=== PATIENT | male | born 1980 | race Caucasian/White ===

== ENCOUNTER 2020-12-16 21:57 | Emergency (ER) | payer OTHER, SELFPAY ==
[2020-12-16 22:27] VITALS: BP 140/83; PULSE 88; RESP 18; TEMP 37.3; O2SAT 99; BMI 23.8
[2020-12-16 23:05] LABS: COVID-19 Test Negative (Negative)
[2020-12-16 23:50] LABS: IDNOW Serial# 9DD0AD1C; Strep A Nucleic Acid Positive (Negative)
--- NOTE | 2020-12-17 00:09 | ED.URI ---
HPI - URI/Sore Throat General Chief Complaint: Upper Respiratory Symptoms Stated Complaint: covid symptoms Time Seen by Provider: 12/16/20 23:06 Source: patient Mode of arrival: ambulatory Limitations: no limitations History of Present Illness HPI Narrative: Patient presents to the ED for sore throat, fever, and body aches for 1 week. Patient denies any coughing, chest pain, shortness of breath. Patient denies inability to tolerate solid food or liquid. Patient denies any drooling or change in voice. MD elicited complaint: fever and sore throat Related Data Previous Rx's Medication Instructions Recorded amoxicillin 875 mg-potassium 1 tab PO Q12H #20 tab 12/17/20 clavulanate 125 mg tablet (Augmentin) naproxen 500 mg tablet 500 mg PO BID PRN #20 tab 12/17/20 Allergies Allergy/AdvReac Type Severity Reaction Status Date / Time No Known Allergies Allergy Unverified 11/21/19 19:29 [No Known Allergies*] Review of Systems Review of Systems: Yes all other systems are reviewed and are negative Constitutional: Constitutional: Reports as per HPI, Reports no additional constitutional complaints, Reports body ache(s) and Reports chills Eyes: Eyes: Reports as per HPI and Reports no additional eye complaints ENT: Reports system reviewed and no additional complaints, except as documented, Reports as per HPI and Reports sore throat Cardiovascular: Cardiovascular: Reports as per HPI and Reports no additional cardiovascular complaints Respiratory: Respiratory: Reports as per HPI and Reports no additional respiratory complaints Gastrointestinal: Gastrointestinal: Reports as per HPI and Reports no additional gastrointestinal complaints Genitourinary: Genitourinary: Reports no additional male genitourinary complaints and Reports as per HPI Musculoskeletal: Musculoskeletal: Reports no additional musculoskeletal complaints and Reports as per HPI Neurologic: Reports system reviewed and no additional complaints, except as documented and Reports as per HPI Psychiatric: Psychiatric: Reports no additional psychiatric complaints [facility] Past Medical History Medical History (Updated 12/17/20 @ 00:17 by LARRY Gonzales) Diabetes mellitus, type 2 Social History Social History Advance Directives: No Physical Exam Vital Signs: Vital Signs: Last Vital Signs Temp 99.1 F 12/16/20 22:27 Pulse 88 12/16/20 22:27 Resp 18 12/16/20 22:27 BP 140/83 H 12/16/20 22:27 Pulse Ox 99 12/16/20 22:27 Body Mass Index 23.8 Const: General: cooperative, healthy appearing, comfortable, no acute distress, well developed, alert, awake and Physically active Orientation/consciousness: patient oriented x3 HENMT: Head: Yes normal to inspection, Yes No palpable skull fracture present, Yes normocephalic, Yes atraumatic and No abrasion Throat: Yes posterior oropharynx normal, Yes tonsils normal and Yes uvula midline Neck: Neck: Yes normal visual inspection, Yes full ROM, Yes no lymphadenopathy, Yes no meningeal signs, Yes trachea midline, Yes supple and No tender Chest: Chest palpation & inspection: normal inspection of the chest and normal palpation of entire chest wall Resp: Effort & Inspection: normal respiratory effort and able to speak in complete sentences Auscultation: clear to auscultation bilaterally Cardio: Jugular venous distension: no JVD Heart sounds: S1 normal heart sound present and S2 normal heart sound present GI: Inspection: Yes normal to inspection and No abdominal wall ecchymosis Palpation (GI): Soft to palpation, not firm, nontender, no guarding and not rigid : General: No CVA tenderness and Yes no CVA tenderness Back/Spine/Pelvis: Back: no CVA tenderness, No CVA tenderness and No back tenderness Skin: General skin exam: no rashes or lesions noted and elasticity normal Neuro: General: patient oriented x3, gait normal, no meningeal signs and CN's II-XI intact bilaterally Cranial nerves: Yes CN's II-XII intact bilaterally Extrem: General: Yes normal to inspection and Yes full ROM Psych: Appearance: grossly normal, well kempt and not disheveled Course Course Course Narrative: COVID swab and strep throat ordered Reevaluation(s) Reevaluation #1: COVID swab negative. Patient came back positive for strep throat Time: 00:15 MDM - URI/Sore Throat MDM Narrative Medical decision making narrative: Pharyngitis Lab Data Labs: Lab Results 12/16/20 12/16/20 Range/Units 22:32 23:26 COVID-19 (JAKE) Negative (Negative) COVID-19 Clin Com See Note S. pyogenes GrpA CARMEN Positive A (Negative) Discharge Plan Discharge Clinical Impression: Acute streptococcal pharyngitis Patient Disposition: Home, Self-Care Instructions: Strep Throat (ED) Additional Instructions: He came back positive for strep throat. COVID swab came back negative. He will be discharged with antibiotics. Return to the ED immediately for inability tolerate solid food/liquid, neck swelling, drooling, change in voice, trach tubal fever, chills, chest pain, shortness of breath, or any other concerning symptoms. Prescriptions: New amoxicillin-pot clavulanate [Augmentin] 875-125 mg tablet 1 tab PO Q12H Qty: 20 RF: 0 naproxen 500 mg tablet 500 mg PO BID PRN (Reason: pain) Qty: 20 RF: 0 Stand Alone Forms: Work/School Release Interventions: ED Discharge Assessment Last Done: 12/17/20 00:29 Discharge Date/Time: 12/17/20 00:30 Print Language: Belarusian
== END 2020-12-17 00:30 | disposition home or self-care (01) ==
PROVIDERS: Physician Assistant; Emergency Provider Emergency Medicine
DX: J02.0 Streptococcal pharyngitis (principal); Z20.822 Contact with and (suspected) exposure to COVID-19
CPT/HCPCS: 36415; 87635; 87651; 99283

== ENCOUNTER 2021-10-15 01:05 | Emergency (ER) | payer OTHER, SELFPAY ==
[2021-10-15 01:12] VITALS: BP 131/78; PULSE 100; RESP 16; TEMP 37.1; O2SAT 98; BMI 29.9
[2021-10-15 01:34] LABS: COVID-19 Test Positive (Negative); Strep A Nucleic Acid Negative (Negative)
== END 2021-10-15 04:22 | disposition left against medical advice (07) ==
PROVIDERS: Emergency Provider Emergency Medicine
DX: U07.1 COVID-19 (principal); J02.9 Acute pharyngitis, unspecified
CPT/HCPCS: 87635; 87651; 99281; 99283

== ENCOUNTER 2021-10-18 12:41 | Outpatient (REF) | payer OTHER, SELFPAY ==
[2021-10-18 13:12] LABS: COVID-19 Test Positive (Negative); IDNOW Serial# 16C4AD1C
== END 2021-10-18 12:42 | disposition home or self-care (01) ==
LOC: HO.LAB 12:41
PROVIDERS: Visit Provider Internal Medicine
DX: Z20.822 Contact with and (suspected) exposure to COVID-19 (principal)
CPT/HCPCS: 87635; C9803

== ENCOUNTER 2021-10-21 11:33 | Outpatient (REF) | payer OTHER, SELFPAY ==
[2021-10-21 12:20] LABS: COVID-19 Test Positive (Negative); IDNOW Serial# 08D9AD1C
== END 2021-10-21 11:34 | disposition home or self-care (01) ==
LOC: HO.LAB 11:33
PROVIDERS: Visit Provider Internal Medicine
DX: Z20.822 Contact with and (suspected) exposure to COVID-19 (principal)
CPT/HCPCS: 87635; C9803

== ENCOUNTER 2021-10-25 10:06 | Outpatient (REF) | payer OTHER, SELFPAY ==
[2021-10-25 11:35] LABS: COVID-19 Test Negative (Negative); IDNOW Serial# 9DB6401D
== END 2021-10-25 10:07 | disposition home or self-care (01) ==
LOC: HO.LAB 10:06
PROVIDERS: Visit Provider Internal Medicine
DX: Z20.822 Contact with and (suspected) exposure to COVID-19 (principal)
CPT/HCPCS: 87635; C9803

== ENCOUNTER 2022-02-04 01:09 | Emergency (ER) | payer OTHER, SELFPAY ==
[2022-02-04 01:31] VITALS: BP 125/82; PULSE 88; RESP 18; TEMP 36.6; O2SAT 98; BMI 31.6
[2022-02-04 01:48] LABS: MANUAL DIFF FLAG NO
[2022-02-04 01:49] LABS: Basophils Percent Auto 0.5 % (0-2); Eosinophils Absolute Auto 0.4 X10*3/uL (0.0-0.4); Eosinophils Percent Auto 4.7 % (0-4); Hematocrit 46.5 % (42.0-52.0); Hemoglobin 15.6 g/dl (14.0-18.0); Imm Gran Abs Auto 0.03 X10*3/uL (0.00-0.03); Imm Gran Pct Auto 0.4 % (0.0-0.4); Lymphocytes Absolute Auto 2.7 X10*3/uL (1.2-4.9); Lymphocytes Percent Auto 32.3 % (20-40); Mean Corpuscular HGB Conc 33.5 g/dl (31.0-36.0); Mean Corpuscular Hemoglobin 26.3 pg (27.0-33.0); Mean Corpuscular Volume 78.4 fL (80.0-98.0); Mean Platelet Volume 9.7 fL (9.4-12.4); Monocytes Absolute Auto 0.7 X10*3/uL (0.1-1.2); Monocytes Percent Auto 7.9 % (2-11); Neutrophils Absolute Auto 4.6 x10*3/uL (2.0-8.3); Neutrophils Percent Auto 54.2 % (45-73); Platelet Count 288 X10*3/uL (160-400); Red Blood Count 5.93 X10*6/uL (4.60-5.80); White Blood Count 8.5 X10*3/uL (4.8-10.8)
[2022-02-04 01:49] LABS: Glucose, Whole Blood 330 mg/dL (60-115)
--- OUTSIDE RECORDS SUMMARY | 2022-02-04 02:02 | XMS_ITS | Continuity of Care Document ---
:1980 Author Organization [facility] Address [address] [place] [phone]- Care Team Providers Name Role Phone Cb Yepez Primary Care Physician Encounter [facility] [place] Date(s): 07/22/20 - 08/21/20 [facility] [address] [place] [email or web address]] Allergies, Adverse Reactions, Alerts Substance Reaction Severity Status NKA Active Medications ibuprofen 600 mg oral tablet 600 mg, 1, tablet, By Mouth, Every 6 to 8 hours, PRN, with food, # 20 tablet, Refills 0, Tot. Refills 0, Maintenance, as needed for pain, 07/04/18 22:21:42 EDT, Print Requisition Start Date: 07/04/18 Status: OrderedKombiglyze XR 2.5 mg-1000 mg oral tablet, extended release 2 tablet, By Mouth, Daily in PM, # 60 tablet, 0 Refills, Maintenance, 07/04/18 22:12:27 EDT, ER Tablet Start Date: 07/04/18 Status: Orderedlidocaine 5% topical film 1 patch, Topically, Daily, PRN Pain , Mild, remove after 12 hours, # 30 patch, 0 Refills, Maintenance, 10/19/19 19:59:00 EDT, Film Start Date: 10/19/19 Stop Date: 10/26/19 Status: Ordered Social History Social History Type Response Smoking Status Never (less than 100 in life time) entered on: 07/04/18 Sex
--- OUTSIDE RECORDS SUMMARY | 2022-02-04 02:02 | XMS_ITS | Continuity of Care Document ---
:1980 Author Organization [facility] Address [address] [place] [phone]- Care Team Providers Name Role Phone Cb Yepez Primary Care Physician [place] [facility] [id number] Date(s): 03/26/20 - 04/25/20 [facility] [address] [place] [id number] Attending Physician: Wesley Biggs Admitting Physician: Admtr, [id number] Referring Physician: Admtr, [id number] Allergies, Adverse Reactions, Alerts Substance Reaction Severity [...]
--- OUTSIDE RECORDS SUMMARY | 2022-02-04 02:02 | XMS_ITS | Continuity of Care Document ---
:1980 Author Organization [facility] Address [address] [place] [phone]- Care Team Providers Name Role Phone Cb Yepez Primary Care Physician Encounter [facility] [place] Date(s): 04/27/20 - 05/27/20 [facility] [address] [place] [id number] Allergies, Adverse Reactions, Alerts Substance Reaction Severity [...]
--- OUTSIDE RECORDS SUMMARY | 2022-02-04 02:02 | XMS_ITS | Continuity of Care Document ---
:1980 Author Organization [facility] Address [address] [place] [phone]- Care Team Providers Name Role Phone Cb Yepez Primary Care Physician Encounter [facility] Date(s): 09/03/20 - 10/03/20 [facility] [address] [place] [id number] Attending Physician: Wesley Biggs Admitting Physician: Admtr, [...] EDT, ER Tablet Start Date: 07/04/18 Status: OrderedTramadol By Mouth, 0 Refills, Maintenance, 09/03/20 8:24:00 EDT, Partial fill upon patient request if the prescription is for a schedule II opioid drug. Start Date: 09/03/20 Status: Ordered Social History Social History Type Response Smoking Status Never (less than 100 in life time) entered on: 07/04/18 Sex
--- OUTSIDE RECORDS SUMMARY | 2022-02-04 02:02 | XMS_ITS | Continuity of Care Document ---
:1980 Author Organization [facility] Address [address] [place] [address]- Care Team Providers Name Role Phone Not on Staff, PCP Primary Care Physician Unavailable Encounter [facility] [place] Date(s): 10/19/19 - 10/19/[address] [id number] [facility] Encounter Diagnosis Back pain (Final) - 10/19/19 Discharge Disposition: A-D/C Home Attending Physician: Kadeem Grey MD Admitting Physician: Kadeem Grey MD Referring Physician: Not on Staff, Referring MD Allergies, Adverse Reactions, Alerts Substance Reaction Severity [...] Date: 10/19/19 Stop Date: 10/26/19 Status: Ordered Vital Signs Most recent to oldest 1 2 3 [Reference Range]: Weight 85.8 kg (10/19/19 4:17 PM) Oxygen Saturation [94-100 %] 100 % 100 % 100 % (10/19/19 7:35 PM) (10/19/19 4:17 PM) (10/19/19 4:1 6 PM) Pulse Rate [55-90 bpm] 70 bpm 93 bpm 91 bpm (10/19/19 7:35 PM) *H* *H* (10/19/19 4:17 PM) (10/19/19 4:16 PM) Blood Pressure [90-138/55-84 mm 130/79 mm Hg 141/77 mm Hg Hg] (10/19/19 7:35 PM) *H* (10/19/19 4:17 PM) Respiratory Rate [16-30 br/min] 18 br/min 18 br/min 18 br/min (10/19/19 8:46 PM) (10/19/19 8:16 PM) (10/19/19 7:3 5 PM) Temperature [96.8-100.4 DegF] 97.9 DegF 98 DegF (10/19/19 7:35 PM) (10/19/19 4:17 PM) Mode of Delivery (Oxygen) Room air Room air Room a ir (10/19/19 7:35 PM) (10/19/19 4:17 PM) (10/19/19 4:1 6 PM) Blood pressure sites Arm, right Arm, left (10/19/19 7:35 PM) (10/19/19 4:17 PM) Temperature Route Oral Oral (10/19/19 7:35 PM) (10/19/19 4:17 PM) Weight Obtained Via Standing scale (10/19/19 4:17 PM) Social History Social History Type Response Smoking Status Never (less than 100 in life time) entered on: 07/04/18 Sex
--- OUTSIDE RECORDS SUMMARY | 2022-02-04 02:02 | XMS_ITS | Continuity of Care Document ---
:1980 Author Organization [facility] Address [address] [place] [phone]- Care Team Providers Name Role Phone Cb Yepez Primary Care Physician [place] [facility] [facility] [place] 08[place]10[place]20 - 09/09/20 [facility] [address] [place] [id number] Allergies, Adverse Reactions, Alerts Substance Reaction Severity [...]
[2022-02-04 02:12] LABS: Anion Gap 13 (12-20); Blood Urea Nitrogen 18 mg/dL (9-16); Calcium 9.5 mg/dL (8.4-10.2); Carbon Dioxide 26 mmol/L (22-29); Chloride 97 mmol/L (96-108); Creatinine Clr Calc Pharmacy 91.5; Estimated Glomerular Filt Rate > 60; Glucose Random 340 mg/dL (60-115); Potassium 4.7 mmol/L (3.3-5.1); Sodium 131 mmol/L (135-145)
[2022-02-04 02:15] LABS: Appearance Urine Clear; Color Urine Yellow; Glucose Urine UA >=1000 mg/dL (Negative); Leukocyte Esterase Urine Negative (Negative); Nitrite Urine Negative (Negative); PH 6.5 (5.0-9.0); Specific Gravity - Urine >= 1.030 (1.005-1.025); UMIC TRIGGER UACC YES; Urine Blood Negative (Negative); Urine Ketones Trace mg/dL (Negative); Urine Protein Negative (Neg-Trace)
[2022-02-04 02:17] LABS: Bacteria Urine None Seen (None Seen); Hyaline Casts Urine 0-2 /LPF (0-2); RBC Urine 0-2 /HPF (0-2); Squamous Epithelial Cell Urine 0-2 /HPF (0-2); WBC Urine 0-5 /HPF (0-5)
--- NOTE | 2022-02-04 02:18 | ED_ITS ---
HPI - General Adult General Chief complaint: Recheck/Abnormal Lab/Rx Stated complaint: High Blood Sugar Time Seen by Provider: 02/04/22 02:18 Source: patient Mode of arrival: ambulatory Limitations: no limitations History of Present Illness HPI narrative: Patient diabetic unable to get his medication Kombiglyze for last 1 week been feeling weak tired and exhausted on arrival patient's blood sugar was 320 no chest pain or shortness of breath no abdominal pain no nausea vomiting Related Data Previous Rx's Medication Instructions Recorded amoxicillin 875 mg-potassium 1 tab PO Q12H #20 tabs 12/17/20 clavulanate 125 mg tablet (Augmentin) naproxen 500 mg tablet 500 mg PO BID PRN pain #20 tabs 12/17/20 Allergies Allergy/AdvReac Type Severity Reaction Status Date / Time No Known Allergies Allergy Unverified 11/21/19 19:29 [No Known Allergies*] Review of Systems Review of Systems: Yes all other systems are reviewed and are negative [facility] Past Medical History Medical History Diabetes mellitus, type 2 Social History Social History Advance Directives: No Advance Directives Information Provided: Yes Physical Exam ED Vital Signs: Vital Signs - 24 hr 02/04/22 01:31 Temperature 98 F Pulse Rate 88 Respiratory Rate 18 Blood Pressure 125/82 Pulse Oximetry 98 Oxygen Delivery Method Room Air BMI result Body Mass Index 31.6 Appearance: Alert. Oriented X3. No acute distress. Eyes: PERRLA, No Nystagmus ENT: Pharynx normal. Oral Mucosa moist Neck: Normal inspection. Neck supple. CVS: Normal heart rate and rhythm. Pulses normal. Respiratory: No respiratory distress. Equal air entry bilateral, no wheezing/rales/rhonchi Abdomen: Soft and nontender. Bowel sounds are present, no mass palpable, no CVA tenderness Skin: Skin warm and dry. Normal skin color. Normal skin turgor. Extremities: No lower extremity edema. No calf tenderness Neuro: Oriented X 3. No motor deficit. No sensory deficit.No cerebellar signs , cranial nerves II-XII intact Medications Administered Discontinued Medications Generic Name Dose Route Start Last Admin Trade Name Freq PRN Reason Stop Dose Admin Insulin Human Lispro 6 unit 02/04/22 02:56 02/04/22 03:03 Insulin Lispro 100 Unit/Ml 3 Ml Vial SUBCUT 02/04/22 02:57 6 unit ONCE ONE Administration Metformin HCl 1,000 mg 02/04/22 02:56 02/04/22 03:03 Metformin Hcl 1,000 Mg Tablet PO 02/04/22 02:57 1,000 mg ONCE ONE Administration Medical Decision Making MDM Narrative Medical decision making narrative: Patient diabetic with hyperglycemia no signs of ketosis patient has a prescription and pharmacy which he will get tomorrow was given insulin metformin tonight and discharged home Lab Data Lab results reviewed: Yes I reviewed the patient's lab results. Result diagrams: 02/04/22 01:44 02/04/22 01:44 Labs: Lab Results 02/04/22 02/04/22 02/04/22 Range/Units 01:43 01:44 01:44 WBC 8.5 (4.8-10.8) X10*3/uL RBC 5.93 H (4.60-5.80) X10*6/uL Hgb 15.6 (14.0-18.0) g/dl Hct 46.5 (42.0-52.0) % MCV 78.4 L (80.0-98.0) fL MCH 26.3 L (27.0-33.0) pg MCHC 33.5 (31.0-36.0) g/dl RDW 12.0 (11.0-16.0) % Plt Count 288 (160-400) X10*3/uL MPV 9.7 (9.4-12.4) fL Immature Gran % (Auto) 0.4 (0.0-0.4) % Neut % (Auto) 54.2 (45-73) % Lymph % (Auto) 32.3 (20-40) % [place] % (Auto) 7.9 (2-11) % Eos % (Auto) 4.7 H (0-4) % Baso % (Auto) 0.5 (0-2) % Lymph # (Auto) 2.7 (1.2-4.9) X10*3/uL [place] # (Auto) 0.7 (0.1-1.2) X10*3/uL Eos # (Auto) 0.4 (0.0-0.4) X10*3/uL Baso # (Auto) 0.0 (0.0-0.2) X10*3/uL Abs Immat Gran (auto) 0.03 (0.00-0.03) X10*3/uL Absolute Neuts (auto) 4.6 (2.0-8.3) x10*3/uL Absolute Nucleated RBC 0.000 (0.0-0.012) X10*3/uL Nucleated RBC % (auto) 0.0 (0.0-0.2) /100WBC Sodium 131 L (135-145) mmol/L Potassium 4.7 (3.3-5.1) mmol/L Chloride 97 (96-108) mmol/L Carbon Dioxide 26 (22-29) mmol/L Anion Gap 13 (12-20) BUN 18 H (9-16) mg/dL Creatinine 1.05 (0.5-1.4) mg/dL Estim Creat Clear Calc 91.5 Estimated GFR > 60 POC Glucose 330 H (60-115) mg/dL Random Glucose 340 H (60-115) mg/dL Calcium 9.5 (8.4-10.2) mg/dL Urine Color Urine Appearance Urine pH (5.0-9.0) Ur Specific [place] (1.005-1.025) Urine Protein (Neg-Trace) mg/dL Urine Glucose (UA) (Negative) mg/dL Urine Ketones (Negative) mg/dL Urine Blood (Negative) Urine Nitrite (Negative) Ur Leukocyte Esterase (Negative) Urine RBC (0-2) /HPF Urine WBC (0-5) /HPF Ur Squamous Epith Cells (0-2) /HPF Urine Bacteria (None Seen) Hyaline Casts (0-2) /LPF 02/04/22 Range/Units 02:09 WBC (4.8-10.8) X10*3/uL RBC (4.60-5.80) X10*6/uL Hgb (14.0-18.0) g/dl Hct (42.0-52.0) % MCV (80.0-98.0) fL MCH (27.0-33.0) pg MCHC (31.0-36.0) g/dl RDW (11.0-16.0) % Plt Count (160-400) X10*3/uL MPV (9.4-12.4) fL Immature Gran % (Auto) (0.0-0.4) % Neut % (Auto) (45-73) % Lymph % (Auto) (20-40) % [place] % (Auto) (2-11) % Eos % (Auto) (0-4) % Baso % (Auto) (0-2) % Lymph # (Auto) (1.2-4.9) X10*3/uL [place] # (Auto) (0.1-1.2) X10*3/uL Eos # (Auto) (0.0-0.4) X10*3/uL Baso # (Auto) (0.0-0.2) X10*3/uL Abs Immat Gran (auto) (0.00-0.03) X10*3/uL Absolute Neuts (auto) (2.0-8.3) x10*3/uL Absolute Nucleated RBC (0.0-0.012) X10*3/uL Nucleated RBC % (auto) (0.0-0.2) /100WBC Sodium (135-145) mmol/L Potassium (3.3-5.1) mmol/L Chloride (96-108) mmol/L Carbon Dioxide (22-29) mmol/L Anion Gap (12-20) BUN (9-16) mg/dL Creatinine (0.5-1.4) mg/dL Estim Creat Clear Calc Estimated GFR POC Glucose (60-115) mg/dL Random Glucose (60-115) mg/dL Calcium (8.4-10.2) mg/dL Urine Color Yellow Urine Appearance Clear Urine pH 6.5 (5.0-9.0) Ur Specific [place] >= 1.030 H (1.005-1.025) Urine Protein Negative (Neg-Trace) mg/dL Urine Glucose (UA) >=1000 H (Negative) mg/dL Urine Ketones Trace (Negative) mg/dL Urine Blood Negative (Negative) Urine Nitrite Negative (Negative) Ur Leukocyte Esterase Negative (Negative) Urine RBC 0-2 (0-2) /HPF Urine WBC 0-5 (0-5) /HPF Ur Squamous Epith Cells 0-2 (0-2) /HPF Urine Bacteria None Seen (None Seen) Hyaline Casts 0-2 (0-2) /LPF Discharge Plan Discharge Clinical Impression: Diabetes mellitus with hyperglycemia Patient Disposition: Home, Self-Care Instructions: Diabetic Hyperglycemia (ED) Additional Instructions: Taking medication as prescribed by her PCP for diabetes Drink plenty of fluids Your blood sugar should be less than 200 Prescriptions: No Action amoxicillin-pot clavulanate [Augmentin] 875-125 mg tablet 1 tab PO Q12H Qty: 20 0RF naproxen 500 mg tablet 500 mg PO BID PRN (Reason: pain) Qty: 20 0RF Interventions: ED Discharge Assessment Last Done: 02/04/22 03:54 Discharge Date/Time: 02/04/22 03:55
[2022-02-04] MEDS: Insulin Lispro 100 UNIT/ML 3 ML VIAL 6 UNIT SUBCUT (03:03)
[2022-02-04] MEDS: metFORMIN HCl 1,000 MG TABLET 1000 MG PO (03:03)
== END 2022-02-04 03:55 | disposition home or self-care (01) ==
PROVIDERS: Emergency Provider Internal Medicine
DX: E11.65 Type 2 diabetes mellitus with hyperglycemia (principal); Z79.899 Other long term (current) drug therapy
CPT/HCPCS: 36415; 80048; 81001; 82947; 85025; 99282; 99283